=== PATIENT | female | born 1965 | race Two or more races ===

== ENCOUNTER → 2020-05-13 | Outpatient (CLI) | payer OTHER ==
[~2020-05-13] MED LIST: ASPI325T8 PO; ATOR20TA58 PO; DILT120C99 PO; DULO30CA2 PO; HYDR-2765 PO; PROM25TA10 PO; VALS1TAB8 PO
--- NOTE | 2020-05-13 15:37 | KCIC ---
EXAMINATION: MRI RIGHT LOWER EXTREMITY JOINT W INDICATIONS: Right knee pain for 10 months, swelling and pain medially. TECHNIQUE: Multiplanar multisequence MRI of the right knee was obtained without contrast. COMPARISON: None FINDINGS: MENISCI: There is increased signal and some irregularity of the posterior horn medial meniscus, whic h could be a degenerative tear versus mucoid degeneration. 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 LIGAMENTS: The anterior and posterior cruciate ligaments are intact. There is edema along the medial collateral ligament, likely reactive to meniscal tear. The medial collateral ligament itself is inta ct. The lateral collateral complex is intact. EXTENSOR MECHANISM: Quadriceps and patellar tendons and retinacula are intact. Mild edema in the sup erior lateral aspect of Hoffa's fat pad. BONES AND CARTILAGE: No acute fracture. Marrow signal is normal. Patellofemoral: There are small scattered focal near full-thickness cartilage defect scattered along the patella and trochlea. Small subchondral cysts in the inferior trochlea. Medial: There is full-thickness or near full-thickness cartilage loss throughout the weightbearing me dial femoral condyle and deep partial-thickness cartilage loss throughout the medial tibial plateau. Lateral compartment: There are areas of deep partial thickness cartilage loss in the posterior weight bearing lateral femoral condyle and throughout the lateral tibial plateau. OTHER: Large joint effusion. Small ganglion cyst near the origin of the lateral head gastrocnemius. Muscles and tendons are intact. No Mcgraw cyst. Subcutaneous soft tissues normal. IMPRESSION: 1. Tricompartmental cartilage loss with areas of full-thickness or deep partial-thickness cartilage l oss in all 3 compartments, greatest in the medial compartment. 2. Increased signal and irregularity of the medial and lateral menisci may be due to degenerative tea rs or mucoid degeneration. Electronically signed by: Montserrat Alejandro MD (05/13/2020 3:35 PM) [id number]
== END ==
LOC: KCIC MRI 09:29
PROVIDERS: ATTEND Physician Assistant Medical
DX: M25.461 Effusion, right knee (principal); M67.461 Ganglion, right knee
CPT/HCPCS: 73721

== ENCOUNTER → 2020-08-05 | Outpatient (CLI) | payer OTHER | LOC: LAB 13:15 | PROVIDERS: ATTEND Orthopaedic Surgery | DX: Z01.812 Encounter for preprocedural laboratory examination (principal); S83.232A Complex tear of medial meniscus, current injury, left knee, initial encounter; Z20.822 Contact with and (suspected) exposure to COVID-19 | CPT/HCPCS: U0003 ==

== ENCOUNTER 2020-08-08 11:20 | Day surgery (SDC) | payer OTHER ==
[~2020-08-08] VITALS: Ht 175.3 cm; Wt 105.2 kg
[~2020-08-08 11:20] MED LIST changes: -ASPI325T8 PO; -ATOR20TA58 PO; -DILT120C99 PO; -DULO30CA2 PO; -HYDR-2765 PO; +HYDROmorphone 2 MG/ML VIAL IVP PRN; +IV RINGERS,LACTATED 1000ML 1,000 ML IV SCH; +MORPHINE SULFATE 2 MG/ML VIAL. IVP PRN; +PROCHLORPERAZINE 10 MG/2 ML VIAL. IVP PRN; -PROM25TA10 PO; -VALS1TAB8 PO; +fentaNYL PF VIAL 100 MCG/2 ML VIAL IVP PRN
[2020-08-08] MEDS ORDERED: LIDOCAINE 2% PF 5 ML VIAL. ONE (11:35)
[2020-08-08] MEDS ORDERED: DEXAMETHASONE SOD PHOS 4 MG/ML VIAL ONE (11:35)
[2020-08-08] MEDS ORDERED: fentaNYL PF VIAL 100 MCG/2 ML VIAL ONE (11:35)
[2020-08-08] MEDS ORDERED: ONDANSETRON PF 4 MG/2 ML VIAL. ONE (11:35)
[2020-08-08] MEDS ORDERED: PROPOFOL 10 MG/ML (20ML) VIAL. IV ONE ×2 (11:35→14:21)
[2020-08-08] MEDS ORDERED: ATOR20TA58 PO (12:02)
[2020-08-08] MEDS ORDERED: DILT120C99 PO (12:03)
[2020-08-08] MEDS ORDERED: VALS1TAB8 PO (12:04)
[2020-08-08] MEDS ORDERED: DULO30CA2 PO (12:05)
[2020-08-08] MEDS ORDERED: EPINEPHrine VIAL 30 MG/30 ML VIAL ONE (13:34)
[2020-08-08] MEDS ORDERED: BUPIVACAINE-EPI 0.25% 30 ML VIAL KIT. ONE ×3 (13:34→13:37)
[2020-08-08] MEDS ORDERED: KETOROLAC 30 MG/ML VIAL. ONE (14:40)
[2020-08-08] MEDS ORDERED: SEVOFLURANE 61 TO 120 MINUTES. IH ONE (14:42)
[2020-08-08] MEDS ORDERED: ASPI325T8 PO (15:49)
[2020-08-08] MEDS ORDERED: PROM25TA10 PO (15:50)
[2020-08-08] MEDS ORDERED: HYDR-2765 PO (15:51)
[2020-08-08] MEDS ORDERED: HYDROcodone/APAP 7.5/325MG 1 TAB TABLET PO ONE ×2 (16:00)
[2020-08-08 16:10] VITALS: BP 132/76
--- NOTE | 2020-08-08 16:15 | PDOC1 ---
History and Physical Date of Admission Date of Admission DATE: 08/08/20 TIME: 16:07 Identification/Chief Complaint Chief Complaint Right knee pain Source Source: Chart review, Patient History of Present Illness History of Present Illness Patient reports sudden onset of RIGHT knee pain and stiffness, aching in the right knee without acute injury. She is active and does indicate that she has notable stiffness after sitting. She denies any hip pain or back pain, radicular type symptoms in the lower extremities. Most of her pain is aching and moderate although she occasionally has some more sharp pain in the medial knee. She has no symptoms in the opposite knee. Initial nonoperative treatment consisted of a cortisone injection but it did not help. She locates continued medial knee pain, worse going down stairs. She feels instabiltiy and feelings of giving out. Her pain is sharp and wakes her up at night. Denies any dull or aching pain. MRI shows degenerative changes and on my review does seem to show a meniscus tear. Past Medical History Past Medical History hypertension, hyperlipidemia, Depression, allergic rhinitis. Cardiovascular: HTN, Hyperlipidemia Psych: Depression ENT: Allergic Rhinitis Past Surgical History Past Surgical History tubal ligation , appendectomy , ankle fusion , sinus surgery Past Surgical History: Appendectomy, Tubal Ligation Family History Family History: No Significant Social History Smoke: 1 pack per day ALCOHOL: none Current Medications Current Medications Current Medications Fentanyl Citrate (Fentanyl 2ml Vial) 25 mcg PRN Q5MIN PRN IVP MILD PAIN 1-3; Start 08/08/20 at 06:00; Stop 08/09/20 at 05:59 Fentanyl Citrate (Fentanyl 2ml Vial) 50 mcg PRN Q5MIN PRN IVP MODERATE PAIN 4-6 ; Start 08/08/20 at 06:00; Stop 08/09/20 at 05:59 Morphine Sulfate (Morphine Sulfate) 1 mg PRN Q10MIN PRN IVP SEVERE PAIN 7-10; Start 08/08/20 at 06:00; Stop 08/09/20 at 05:59 Ringer's Solution 1,000 ml @ 30 mls/hr Q24H IV Last administered on 08/08/20at 12:07; Start 08/08/20 at 06:00; Stop 08/08/20 at 17:59 Hydromorphone HCl (Dilaudid) 0.5 mg PRN Q10MIN PRN IVP SEVERE PAIN 7-10, 2nd CHOICE; Start 08/08/20 at 06:00; Stop 08/09/20 at 05:59 Prochlorperazine Edisylate (Compazine) 5 mg PACU PRN PRN IVP NAUSEA, MRX1 Last administered on 08/08/20at 15:35; Start 08/08/20 at 06:00; Stop 08/09/20 at 05:59 Cefazolin Sodium/ Dextrose 50 ml @ 100 mls/hr 1X PREOP PRN IV PRIOR TO PROCEDURE Last administered on 08/08/20at 13:47; Start 08/08/20 at 06:00; Stop 08/08/20 at 18:00 Propofol (Diprivan) 200 mg STK-MED ONCE IV ; Start 08/08/20 at 11:35; Stop 08/08/20 at 11:35; Status DC Lidocaine HCl (Lidocaine Pf 2% Vial) 5 ml STK-MED ONCE .ROUTE ; Start 08/08/20 at 11:35; Stop 08/08/20 at 11:35; Status DC Dexamethasone Sodium Phosphate (Decadron) 4 mg STK-MED ONCE .ROUTE ; Start 08/08/20 at 11:35; Stop 08/08/20 at 11:35; Status DC Ondansetron HCl (Zofran) 4 mg STK-MED ONCE .ROUTE ; Start 08/08/20 at 11:35; Stop 08/08/20 at 11:35; Status DC Fentanyl Citrate (Fentanyl 2ml Vial) 100 mcg STK-MED ONCE .ROUTE ; Start 08/08/20 at 11:35; Stop 08/08/20 at 11:36; Status DC Bupivacaine HCl/ Epinephrine Bitart (Sensorcain-Epi 0.25% Kit) 30 ml STK-MED ONCE .ROUTE Last administered on 08/08/20at 14:20; Start 08/08/20 at 13:34; Stop 08/08/20 at 13:34; Status DC Epinephrine HCl (Adrenalin) 30 mg STK-MED ONCE .ROUTE Last administered on 08/08/20at 14:20; Start 08/08/20 at 13:34; Stop 08/08/20 at 13:34; Status DC Bupivacaine HCl/ Epinephrine Bitart (Sensorcain-Epi 0.25% Kit) 30 ml STK-MED O NCE .ROUTE ; Start 08/08/20 at 13:34; Stop 08/08/20 at 13:35; Status DC Bupivacaine HCl/ Epinephrine Bitart (Sensorcain-Epi 0.25% Kit) 30 ml STK-MED ONCE .ROUTE Last administered on 08/08/20at 14:20; Start 08/08/20 at 13:37; Stop 08/08/20 at 13:37; Status DC Propofol (Diprivan) 200 mg STK-MED ONCE IV ; Start 08/08/20 at 14:21; Stop 08/08/20 at 14:22; Status DC Ketorolac Tromethamine (Toradol 30mg Vial) 30 mg STK-MED ONCE .ROUTE ; Start 08/08/20 at 14:40; Stop 08/08/20 at 14:40; Status DC Sevoflurane (Ultane) 60 ml STK-MED ONCE IH ; Start 08/08/20 at 14:42; Stop 08/08/20 at 14:42; Status DC Acetaminophen/ Hydrocodone Bitart (Lortab 7.5/325) 1 tab 1X ONCE PO Last administered on 08/08/20at 16:04; Start 08/08/20 at 16:00; Stop 08/08/20 at 16:01; Status DC Acetaminophen/ Hydrocodone Bitart (Lortab 7.5/325) 2 tab 1X ONCE PO ; Start 08/08/20 at 16:00; Stop 08/08/20 at 16:01; Status DC Active Scripts Active Reported Hydrocodone-Apap 7.5-325 (Hydrocodone Bit/Acetaminophen) 1 Tab Tablet 1-2 Tab PO PRN Q4HRS PRN 7 Days Promethazine Hcl 25 Mg Tablet 1 Tab PO PRN Q6HRS PRN Aspirin 325 Mg Tablet 1 Tab PO DAILY Cymbalta (Duloxetine Hcl) 30 Mg Capsule.dr 1 Cap PO DAILY Diovan Hct 160-12.5 Mg Tab (Valsartan/Hydrochlorothiazide) 1 Each Tablet 1 Tab PO DAILY Diltiazem 24HR Cd (Diltiazem Hcl) 120 Mg Cap.er.24h 1 Cap PO DAILY 30 Days Atorvastatin Calcium 20 Mg Tablet 1 Tab PO DAILY Allergies Allergies: Coded Allergies: No Known Drug Allergies (Unverified , 08/08/20) Physical Exam General: Alert, Cooperative HEENT: Atraumatic Lungs: Normal air movement Heart: RRR Abdomen: Soft Extremities: No cyanosis, No edema, Normal pulses, Other (The RIGHT knee shows normal alignment, no masses and mild-moderate effusion. There is tenderness at the medial joint line and a positive medial Roberto's test. The lateral joint line shows no tenderness. Range of motion is 0-135 degrees. There is trace patellofemoral crepitus. Roberto's test is positive. There is medial joint line pain with deep flexion and especially with rotation of the tibia. The knee is stable to varus and valgus stress without subluxation or laxity. The ACL feels intact on Tony testing. Muscle strength is normal (5/5) for quadriceps and hamstrings, and muscle tone is normal. The skin is normal with no scars, rashes, lesions or ulcers. Light touch sensation is intact. No edema and no varicosities. Dorsalis pedis pulse is intact and capillary refill is normal.) Neuro: Normal speech, Sensation intact Psych/Mental Status: Mental status NL, Mood NL Vitals Vitals Vital Signs Date Time Temp Pulse Resp B/P (MAP) Pulse Ox O2 Delivery O2 Flow Rate FiO2 08/08/20 16:04 16 94 Room Air 08/08/20 15:55 88 128/78 08/08/20 15:25 6 08/08/20 14:55 98.7 98.7 Images Images MRI report reviewed and images independently reviewed. Series 6 image 10 looks like a medial meniscus tear to me. PATIENT: RAJEEV HODGES ACCOUNT: [id number] : 1965 LOCATION: [facility] MRI AGE: 55 SEX: F EXAM STATUS: REG CLI ORD. PHYSICIAN: GASTON BYRNE REASON: RIGHT KNEE PAIN PROCEDURE: LOWER EXT JOINT WO RT EXAMINATION: MRI RIGHT LOWER EXTREMITY JOINT W INDICATIONS: Right knee pain for 10 months, swelling and pain medially. TECHNIQUE: Multiplanar multisequence MRI of the right knee was obtained without contrast. COMPARISON: None FINDINGS: MENISCI: There is increased signal and some irregularity of the posterior horn medial meniscus, which could be a degenerative tear versus mucoid degeneration. 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 LIGAMENTS: The anterior and posterior cruciate ligaments are intact. There is edema along the medial collateral ligament, likely reactive to meniscal tear. The medial collateral ligament itself is intact. The lateral collateral complex is intact. EXTENSOR MECHANISM: Quadriceps and patellar tendons and retinacula are intact. Mild edema in the superior lateral aspect of Hoffa's fat pad. BONES AND CARTILAGE: No acute fracture. Marrow signal is normal. Patellofemoral: There are small scattered focal near full-thickness cartilage defect scattered along the patella and trochlea. Small subchondral cysts in the inferior trochlea. Medial: There is full-thickness or near full-thickness cartilage loss throughout the weightbearing medial femoral condyle and deep partial-thickness cartilage loss throughout the medial tibial plateau. Lateral compartment: There are areas of deep partial thickness cartilage loss in the posterior weightbearing lateral femoral condyle and throughout the lateral tibial plateau. OTHER: Large joint effusion. Small ganglion cyst near the origin of the lateral head gastrocnemius. Muscles and tendons are intact. No Mcgraw cyst. Subcutaneous soft tissues normal. IMPRESSION: 1. Tricompartmental cartilage loss with areas of full-thickness or deep partial- thickness cartilage loss in all 3 compartments, greatest in the medial compartment. 2. Increased signal and irregularity of the medial and lateral menisci may be due to degenerative tears or mucoid degeneration. Electronically signed by: Montserrat Alejandro MD (05/13/2020 3:35 PM) [id number] DICTATED and SIGNED BY: MONTSERRAT ALEJANDRO MD DATE: 05/13/20 [id number] 0 Weightbearing x-rays also reviewed. Minimal joint space narrowing, no large osteophytes, doubtful osteophytic lipping. I think these are Kellgren-Brennon grade 1 changes. There is minimal if any malalignment. [address] [address] IMAGING REPORT Signed PATIENT: RAJEEV HODGES ACCOUNT: [id number] : 1965 LOCATION: [facility] AGE: 55 SEX: F EXAM STATUS: REG CLI ORD. PHYSICIAN: HUMPHREY WAGNER Jr. [facility] REASON: RIGHT KNEE PAIN PROCEDURE: KNEE STANDING BILAT AP EXAM: Bilateral knees, standing view; right knee, 2 views. HISTORY: Pain. COMPARISON: 09/27/2019 FINDINGS: A standing view both knees and lateral and sunrise views of the right knee are obtained. There is no fracture, dislocation or subluxation. There is minimal right knee tricomponent spurring. There is a small right knee effusion. There are corticated ossicles along the anterior tibial plateau in the lateral projection, likely due to tiny joint loose bodies. IMPRESSION: 1. Mild right knee osteoarthritis. 2. Small right knee effusion and small right knee joint loose bodies. Electronically signed by: Lisbeth Shearer MD (05/23/2020 9:09 AM) [id number] DICTATED AND SIGNED BY: LISBETH SHEARER MD DATE: 05/23/20907 CC: HUMPHREY WAGNER Jr. PAC; GASTON BYRNE VTE Prophylaxis Ordered VTE Prophylaxis Devices: Yes VTE Pharmacological Prophylaxi: Yes Assessment/Plan Assessment/Plan Her described symptoms and exam findings correlate with a medial meniscus tear; the radiologist called this "Increased signal and irregularity of the medial meniscus", although I would call this a meniscus tear (series 6 image 10). We reviewed her x-rays and MRI together and discussed the natural history of the condition along with risks, benefits, and alternatives to treatment. Specifically, we weighted the difference in indication and efficacy between arthroscopy and knee replacement; while she may desire knee replacement 10-15 years in the future, her symptoms almost entirely seem meniscal in nature and she's young to be considering joint replacement. Given her failure of nonoperati ve measures with continued severe pain, my recommendation is surgery. Plan for right knee arthroscopic meniscectomy. We discussed potential risks of arthroscopic meniscectomy surgery, including risks of bleeding, infection, progressive arthritis, blood clots, or other potential surgical or anesthetic complications. We also discussed postoperative treatment and expectations including progression of arthritis following knee arthroscopy. All of her questions were answered and she desires to proceed with surgery . She is here today for elective right knee arthroscopy and probable meniscectomy. Justifications for Admission Other Justification WALDO STEELE MD Aug 08, 2020 16:15
--- NOTE | 2020-08-08 16:19 | PDOC4 ---
Operative Note Operative Note Date of Procedure: August 08, 2020 Preoperative Diagnosis: right knee medial meniscus tear Postoperative Diagnosis: * complex tear medial meniscus, current injury, right knee, initial encounter, S83.231A * complex tear of lateral meniscus, current injury, right knee, initial encounter, S83.271A Procedures Performed: * right knee arthroscopy, surgical, with meniscectomy, medial AND lateral, including meniscal shaving, including debridement/shaving of articular cartilage (chondroplasty) CPT 46450 Surgeon: Waldo Wen MD Employee Placement Specialist: TRUDI Haynes Anesthesia: General Estimated Blood Loss: 10 mL Specimens: none Drains: none Complications: none Tourniquet time: 26 minutes at 300 mm Hg Indications for Procedure: The patient is a 55-year-old with right knee pain, unrelieved with nonoperative treatment. Exam and MRI are consistent with a meniscus tear. We talked about the risks and benefits of proceeding with an arthroscopic procedure. We talked about potential risks of ongoing pain, progressive arthritis, bleeding, infection, blood clots, or other potential surgical or anesthetic complications. All of the patient's questions about surgery were answered and they desired to proceed. Written consent was obtained. Description of Operation: The patient was identified in the preoperative holding area. The correct right knee was marked by me. The patient was taken to the operating room, where a general anesthetic was used. Preoperative antibiotics were given intravenously. A time-out procedure was performed. A tourniquet was placed on the upper thigh. Local anesthetic 20 mL of 0.25% bupivacaine was injected using sterile techniq ue into the knee joint. The limb was prepared circumferentially with ChloraPrep solution and sterile waterproof arthroscopy drapes were applied. The limb was exsanguinated with an Esmarch bandage and the tourniquet was inflated. Lateral and medial arthroscopy portals were established. The medial meniscus showed a complex unrepairable tear with unstable flaps. 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 The lateral tibiofemoral joint showed a complex unrepairable meniscus tear, and a meniscectomy was performed with basket forceps and the motorized shaver back to a smooth stable base.The lateral articular surfaces showed chondromalacia O uterbridge grade III, and a shaving chondroplasty was performed removing unstable fragments of cartilage with the shaver. The patellofemoral joint showed chondromalacia Outerbridge grade III, and a shaving chondroplasty was performed removing unstable fragments of cartilage with the shaver. The suprapatellar pouch, medial and lateral gutters were free of loose bodies. Copious irrigation was used to drain all meniscal and chondral fragments, and the knee was drained of fluid. The portals were closed with #3-0 Prolene interrupted sutures. Additional local anesthetic, 30 mL of 0.25% bupivacaine with epinephrine was injected. A bulky sterile dressing was applied and the tourniquet was released. Needle and sponge counts were correct and there were no apparent complications. WALDO WEN MD Aug 08, 2020 16:19
== END 2020-08-08 16:35 | disposition home or self-care (01) ==
LOC: SURG 11:20
PROVIDERS: ATTEND Orthopaedic Surgery
DX: S83.231A Complex tear of medial meniscus, current injury, right knee, initial encounter (principal); S83.271A Complex tear of lateral meniscus, current injury, right knee, initial encounter; I10 Essential (primary) hypertension; E78.00 Pure hypercholesterolemia, unspecified; F32.9 Major depressive disorder, single episode, unspecified; Z98.51 Tubal ligation status; Z98.890 Other specified postprocedural states; Z79.899 Other long term (current) drug therapy; X58.XXXA Exposure to other specified factors, initial encounter; Y93.89 Activity, other specified; Y92.89 Other specified places as the place of occurrence of the external cause; Y99.8 Other external cause status
CPT/HCPCS: 29880; A4930; J0171; J0690; J0780; J1100; J1885; J2405; J2704; J3010

== ENCOUNTER → 2020-12-29 | Outpatient (CLI) | payer OTHER ==
[~2020-12-29] MED LIST changes: +ASPI325T8 PO; +ATOR20TA58 PO; +DILT120C99 PO; +DULO30CA2 PO; +HYDR-2765 PO; -HYDROmorphone 2 MG/ML VIAL IVP PRN; -IV RINGERS,LACTATED 1000ML 1,000 ML IV SCH; -MORPHINE SULFATE 2 MG/ML VIAL. IVP PRN; -PROCHLORPERAZINE 10 MG/2 ML VIAL. IVP PRN; +PROM25TA10 PO; +VALS1TAB8 PO; -fentaNYL PF VIAL 100 MCG/2 ML VIAL IVP PRN
--- NOTE | 2020-12-29 17:16 | RAD ---
Examination: Right Lower Extremity Venous Doppler Ultrasound History: Right leg pain Comparison: None Procedure: Olivares scale, color flow 2D and spectal waveform analysis images are obtained with and witho ut compression in the area of the common femoral vein, superficial femoral vein - femoral vein juncti on, main femoral vein (superficial femoral vein) and popliteal vein. Veins of the proximal calf are a lso imaged. Findings: There is normal duplex flow, color flow and compressibility of all visualized vein segments. No evide nce of deep venous thrombus is present. There is moderate fluid collection identified in the soft tis tennille anterior to the knee. Impression: 1. No evidence of DVT in the right lower extremity venous system. 2. Moderate fluid collection identified in the soft tissue anterior to the knee could be seroma. Cons ider CT for further evaluation.. Electronically signed by: Thierry Boswell MD (12/29/2020 5:14 PM) [id number]
== END ==
LOC: US 16:25
PROVIDERS: ATTEND Orthopaedic Surgery
DX: M79.89 Other specified soft tissue disorders (principal)
CPT/HCPCS: 93971